=== PATIENT | male | born 1965 | race Caucasian/White ===

== ENCOUNTER 2018-09-16 02:32 | Emergency (ER) | payer SELFPAY ==
[2018-09-16 02:44] VITALS: BP 109/71; PULSE 80; RESP 18; TEMP 36.3; O2SAT 98
[2018-09-16 03:15] VITALS: BP 96/71; PULSE 76; RESP 16; TEMP 36.6; O2SAT 96
--- NOTE | 2018-09-16 03:36 | ED_ITS ---
HPI - Overdose General Chief Complaint: Toxicology Problem Stated Complaint: drunk Time Seen by Provider: 09/16/18 02:34 Source: patient and police Mode of arrival: ambulatory Limitations: no limitations History of Present Illness HPI Narrative: 52-year-old male smoker with chronic history of alcohol abuse who is brought by police because of being obviously drunk and in public. Patient admittedly drinks a significant amount daily. He denies any symptoms. He has no recent injuries has no headache nor nausea, vomiting or weakness. He denies chest pain or shortness of breath. Denies any recent falls or injuries. Intent: unknown Context: Accidental Overdose: uncertain what happened Related Data Home Medications Medication Instructions Recorded Confirmed No Known Home Medications 09/16/18 09/16/18 Allergies Allergy/AdvReac Type Severity Reaction Status Date / Time No Known Allergies Allergy Uncoded 07/15/17 12:10 Review of Systems Constitutional Denies chills, Denies fever(s), Denies lethargy and Denies weakness Eyes Denies change in vision, Denies eye discharge, Denies irritation and Denies loss of vision ENT Ears, Nose, Mouth, and Throat: Denies change in voice, Denies neck pain and Denies sore throat Cardiovascular Denies chest pain, Denies irregular heart rhythm, Denies lightheadedness, Denies palpitations, Denies dyspnea, Denies dyspnea on exertion and Denies orthopnea Respiratory Denies cough, Denies dyspnea, Denies dyspnea on exertion and Denies wheezing Gastrointestinal Gastrointestinal: Denies abdominal pain, Denies change in bowel habits, Denies diarrhea, Denies nausea and Denies vomiting Genitourinary Denies hematuria, Denies flank pain, Denies urinary incontinence and Denies urinary urgency Musculoskeletal Denies neck pain Integumentary/Breasts Denies pruritus, Denies erythema, Denies rash and Denies wounds Neurologic Denies confusion, Denies loss of vision and Denies weakness Psychiatric Denies anxiety, Denies confusion, Denies depression, Denies homicidal ideation and Denies suicidal ideation Endocrine Denies palpitations Hematologic/Lymphatic Denies easy bruising Allergic/Immunologic Denies wheezing PFSH Social History Smoking Status: Current every day smoker Social History Smoking Status: Current every day smoker Exam Narrative Exam Narrative: GENERAL: 52-year-old male appears older than stated age, a bit disheveled, smells of alcohol and slurring his words. HEAD: Atraumatic. Normocephalic. No temporal or scalp tenderness. EYES: Pupils equal round and reactive. Extraocular motions intact. No scleral icterus. No injection or drainage. ENT: Poor dentition throughout Nose without bleeding, purulent drainage or septal hematoma. Throat without erythema, tonsillar hypertrophy or exudate. Uvula midline. Airway patent. NECK: Trachea midline. No JVD or lymphadenopathy. Supple, nontender, no meningeal signs. CARDIOVASCULAR: Regular rate and rhythm without murmurs, gallops, or rubs. RESPIRATORY: Clear to auscultation. Breath sounds equal bilaterally. No wheezes, rales, or rhonchi. GASTROINTESTINAL: Abdomen soft, non-tender, nondistended. No hepato- splenomegaly, or palpable masses. No guarding. EXTREMITIES: No clubbing, cyanosis, or edema. No joint tenderness, effusion, or edema noted. BACK: Nontender without deformity or crepitance. No flank tenderness. NEURO: AOx3. SKIN: No rash or erythema. Initial Vital Signs Initial Vital Signs: Vital Signs Temperature 97.4 F L 09/16/18 02:44 Pulse Rate 80 09/16/18 02:44 Respiratory Rate 18 09/16/18 02:44 Blood Pressure 109/71 09/16/18 02:44 Pulse Oximetry 98 09/16/18 02:44 Course Vital Signs - 8 hr 09/16/18 02:44 09/16/18 03:15 Temperature 97.4 F L 98 F Pulse Rate 80 76 Respiratory Rate 18 16 Blood Pressure 109/71 Blood Pressure [Left Arm] 96/71 Pulse Oximetry 98 96 Discharge Plan Departure Patient Disposition: Home Clinical Impression: Alcohol abuse, Alcoholic intoxication Discharge Date/Time: 09/16/18 07:06 Interventions: ED Discharge Assessment Last Done: 09/16/18 06:30 Instructions: DI for Alcohol Abuse Activity Restrictions/Additional Instructions: *You have been diagnosed with [ Acute alcohol intoxication ] *What to do: *Follow up with your primary care provider in 2-3 days, call for an appointment. Let them know you were seen in the Emergency Department and that we ask that you be seen in follow up *Return to ER if you should have any new, worsening or concerning symptoms Prescriptions: No Action No Known Home Medications RF: 0 Referrals: [facility] [Outside]
--- NOTE | 2018-09-16 04:05 | PC.NURSE ---
He told me he [facility] his sleeping [facility].He stated [place] [employer] brought him to our ED door.He denies pain,denies suicidal or homicidal thoughts.His speech is slurred but he has a steady gait,he stated he drinks every day.
[2018-09-16 04:23] VITALS: BP 111/74; PULSE 84; RESP 20; O2SAT 96
[2018-09-16 06:05] VITALS: BP 119/60; PULSE 80; RESP 18; O2SAT 98
== END 2018-09-16 07:06 | disposition home or self-care (01) ==
PROVIDERS: Emergency Provider Emergency Medicine
DX: F10.929 Alcohol use, unspecified with intoxication, unspecified (principal); F10.10 Alcohol abuse, uncomplicated
CPT/HCPCS: 99282; 99283

== ENCOUNTER 2018-09-25 22:30 | Emergency (ER) | payer SELFPAY ==
[2018-09-25 22:35] VITALS: BP 134/88; PULSE 78; RESP 16; TEMP 36.5; O2SAT 96
--- NOTE | 2018-09-25 22:39 | PC.NURSE ---
Provided warm blanket, broth and sandwich for comfort and nutritional support
--- NOTE | 2018-09-25 23:13 | ED_ITS ---
HPI - Alcohol General Chief Complaint: Toxicology Problem Stated Complaint: ETOH intoxication Time Seen by Provider: 09/25/18 22:47 Source: patient Mode of arrival: ambulatory Limitations: no limitations History of Present Illness HPI narrative: The patient arrives by EMS, escorted by police. He was discovered sleeping beside the road here in town. He is obviously intoxicated. Upon arrival he is alert, interactive. His voice is slurred. He does communicate somewhat. He has no discomfort. He apparently has recently come to this area from [place], [place] he used the train and then a bus. He has been drinking alcohol. He tells me he gets stone in the morning and drunk in the evening. He slurs his speech, he laughs often. He is in no apparent distress. Related Data Home Medications Medication Instructions Recorded Confirmed No Known Home Medications 09/16/18 09/16/18 Allergies Allergy/AdvReac Type Severity Reaction Status Date / Time No Known Allergies Allergy Uncoded 07/15/17 12:10 Review of Systems Review of Systems ROS is very limited due to patient's medical condition. He admittedly is intoxicated. He has no chest pain or abdominal pain. He can move all extremities. Responses are usually incoherent, more information is not obtainable. [facility] Medical History (Updated 09/26/18 @ 04:00 by Johann Parada MD) Unknown if patient has history of psychiatric disorder (Acute) Social History (Updated 09/26/18 @ 01:32 by Johann Parada MD) Smoking Status: Current every day smoker alcohol intake: current Social History (Updated 09/26/18 @ 01:32 by Johann Parada MD) Smoking Status: Current every day smoker alcohol intake: current Exam Initial Vital Signs Initial Vital Signs: Vital Signs Temperature 97.7 F 09/25/18 22:35 Pulse Rate 78 09/25/18 22:35 Respiratory Rate 16 09/25/18 22:35 Blood Pressure 134/88 09/25/18 22:35 Pulse Oximetry 96 09/25/18 22:35 Const General: cooperative, No in distress, frail appearing and intoxicated appearing [facility] Head: normal to inspection, normocephalic and atraumatic Face and sinus: normal facial exam Mouth: oral mucosae normal Eyes Conjunctivae: conjunctivae normal Pupils: pupil size bilaterally (3 mm) Neck Neck: No tender and No JVD Chest Chest: No normal inspection of the chest Resp Effort & Inspection: normal respiratory effort, able to speak in complete sentences, no respiratory distress and no use of accessory muscles Auscultation: clear to auscultation bilaterally, no rales, no rhonchi and no wheezes Cardio Rate: regular rate Rhythm: regular rhythm Heart Sounds: no click, no gallops, no murmurs and no rubs Pulses: normal peripheral pulses GI Inspection: non-distended Palpation: soft, no hepatosplenomegaly, No guarding, No pulsatile mass and No tender Auscultation: normal bowel sounds Skin General: no rashes or lesions noted, No jaundice and No petechiae Neuro General: alert, gait normal and no focal motor deficits Speech: abnormal speech (Slurred speech) Course Course Narrative: The patient has been resting here for 5.5 hours. He is more coherent. He was initially jovial, laughing. He is now yelling at nurses, very demanding. He is demanding Librium. His vitals remain acceptable. He is oriented to person and place, but not cooperative. He is discharged. He is escorted out by security. Orders Ordered: Discontinued Medications Hydroxyzine Pamoate (Vistaril) 50 mg PO NOW ONE Stop: 09/25/18 23:14 Last Admin: 09/25/18 23:32 Dose: 50 mg Vital Signs - 8 hr 09/25/18 22:35 09/25/18 23:55 09/26/18 01:21 Temperature 97.7 F Pulse Rate 78 104 H 78 Respiratory Rate 16 14 18 Blood Pressure 134/88 Blood Pressure [Left Arm] 118/76 103/72 Pulse Oximetry 96 95 95 MDM - Alcohol Lab Data Labs: Point of Care Testing Breathalizer 0.152 Discharge Plan Departure Patient Disposition: Home Clinical Impression: Alcoholic intoxication Qualifiers: Complication of substance-induced condition: with unspecified complication Qualified Code(s): F10.929 - Alcohol use, unspecified with intoxication, unspecified Instructions: DI for Alcohol Abuse Activity Restrictions/Additional Instructions: Avoid intoxication with alcohol. Return to the ER when necessary. Prescriptions: No Action No Known Home Medications RF: 0
[2018-09-25] MEDS: hydrOXYzine pamoate 25 MG CAPSULE 50 MG PO (23:32)
[2018-09-25 23:55] VITALS: BP 118/76; PULSE 104; RESP 14; O2SAT 95
[2018-09-26 01:21] VITALS: BP 103/72; PULSE 78; RESP 18; O2SAT 95
--- NOTE | 2018-09-26 01:22 | PC.NURSE ---
Pt easily aroused by touch during taking a VS but conversing incoherently. Easily falls back to sleep
--- NOTE | 2018-09-26 04:00 | PC.NURSE ---
Pt aroused from sleep and came out to nursing station, demanding sandwich and gingerale and acting belligerent calling staff with foul language, however, is able to redirected
[2018-09-26 04:31] VITALS: BP 113/71; PULSE 76; RESP 16; O2SAT 98
--- NOTE | 2018-09-26 05:27 | PC.NURSE ---
Pt woke and became verbally abusive, demanding staff members' whole names What's your full name? Write it down on here. I'll kyler you. You can't bill me for this. Security called and arrived to unit. Pt escorted to lobby. Pt was physically intimidating, approaching too close to caregivers in a threatening manner. Security escorted pt to hospital doors.
== END 2018-09-26 05:15 | disposition home or self-care (01) ==
PROVIDERS: Emergency Provider Emergency Medicine
DX: F10.929 Alcohol use, unspecified with intoxication, unspecified (principal)
CPT/HCPCS: 82075; 99283

== ENCOUNTER 2018-11-02 23:01 | Emergency (ER) | payer OTHER, MEDICAID, SELFPAY ==
[2018-11-02 23:00] VITALS: BP 100/64; PULSE 75; RESP 20; TEMP 37.1; O2SAT 97
--- NOTE | 2018-11-02 23:14 | ED_ITS ---
HPI - Medical Clearance General Chief complaint: Medical Clearance Stated complaint: Fit For Alf Time Seen by Provider: 11/02/18 23:02 Source: patient and police Mode of arrival: other (Please) Limitations: other (Intoxication) History of Present Illness HPI Narrative: Patient is brought in by police for medical clearance was a fit for confinement. According to the immigration services officer patient was brought in because of intoxication. Patient states he was drinking this evening. Denies any other ingestions. No trauma. Patient has no complaints. Previous Rx's Medication Instructions Recorded chlordiazepoxide HCl 25 mg PO Q12H PRN #6 cap 11/02/18 Allergies Allergy/AdvReac Type Severity Reaction Status Date / Time No Known Allergies Allergy Uncoded 07/15/17 12:10 Review of Systems Cardiovascular Denies chest pain and Denies dyspnea Respiratory Denies dyspnea Neurologic Comments: Intoxication Psychiatric Comments: Intoxication [facility] Medical History Patient denies medical problems (Acute) Unknown if patient has history of psychiatric disorder (Acute) Social History Smoking Status: Current every day smoker alcohol intake: current Social History Smoking Status: Current every day smoker alcohol intake: current Exam Initial Vital Signs Initial Vital Signs: Vital Signs Temperature 98.7 F 11/02/18 23:00 Pulse Rate 75 11/02/18 23:00 Respiratory Rate 20 11/02/18 23:00 Blood Pressure 100/64 11/02/18 23:00 Pulse Oximetry 97 11/02/18 23:00 Const General: cooperative, No acute distress and disheveled Orientation: alert and awake Resp Effort & Inspection: normal respiratory effort Auscultation: clear to auscultation bilaterally Cardio Rate: regular rate Rhythm: regular rhythm Skin Lesions: no lesions Rashes: no rashes Neuro General: alert and awake Speech: speech normal Extrem General: capillary refill normal MDM - Medical Clearance MDM Narrative Medical decision making narrative: Patient has no signs of trauma. He is intoxicated however is under the care of police. Given his alcohol history he was given a prescription for Librium. business liaison officer states that he will be in a facility that has nursing supervision. Patient is clear for confinement. Discharge Plan Departure Patient Disposition: Released, Other Clinical Impression: Medical clearance for incarceration Alcohol intoxication Qualifiers: Complication of substance-induced condition: uncomplicated Qualified Code(s): F10.920 - Alcohol use, unspecified with intoxication, uncomplicated Discharge Date/Time: 11/02/18 23:26 Interventions: ED Discharge Assessment Last Done: 11/02/18 23:26 Instructions: Alcohol Use Disorder Activity Restrictions/Additional Instructions: You are fit for retirement. No driving for the next 24 hours or in the future if you partake in intoxicating substances. If you are in need of help finding a primary provider you can contact the health payroll human resources assistant here at the hospital at [phone]. Return to the emergency department for any new or worsening symptoms. Prescriptions: New chlordiazepoxide HCl 25 mg capsule 25 mg PO Q12H PRN (Reason: alcohol withdrawal) Qty: 6 RF: 0
== END 2018-11-02 23:26 | disposition home or self-care (01) ==
PROVIDERS: Emergency Provider Emergency Medicine
DX: F10.920 Alcohol use, unspecified with intoxication, uncomplicated (principal)
CPT/HCPCS: 99282; 99283